=== PATIENT | female | born 1990 | race Caucasian/White ===

== ENCOUNTER 2016-08-26 00:24 | Observation (INO) | payer MEDICAID ==
[2016-08-26 01:11] LABS: Bacteria FEW /HPF (NEGATIVE); COMPLETE URINE MICROSCOPIC? YES; Collection Type CLEAN CATCH; Epithelial Cells FEW /HPF (FEW); WBC 0-2 /HPF (0-5)
[2016-08-26] MEDS ORDERED: Lactated Ringers 1,000 ML IV ONE ×2 (02:29→02:31)
[2016-08-26 04:54] VITALS: BP 108/65; PULSE 69
== END 2016-08-26 04:20 | disposition home or self-care (01) ==
LOC: OB 00:24
PROVIDERS: ADMIT Family Medicine; ATTEND Family Medicine
DX: Z34.82 Encounter for supervision of other normal pregnancy, second trimester (principal)
CPT/HCPCS: 80307; 81000; G0378

== ENCOUNTER 2016-12-22 14:58 | Inpatient (IN) | payer OTHER ==
[2016-12-22] MEDS ORDERED: Cervidil 10 MG VAG SCH (21:00)
[2016-12-22] MEDS ORDERED: PITOCIN 30 UNITS/ LR 500 ML 500 ML IV SCH (21:00)
[2016-12-22] MEDS ORDERED: BRETHINE 1 MG/ML SQ PRN (21:00)
[2016-12-22] MEDS ORDERED: XYLOCAINE 1% HCL 20 ML MDV IJ PRN (21:00)
[2016-12-22 22:08] LABS: BASOPHIL % 0.1 % (0.0-0.4); Eosinophil % 0.4 % (0.00-5.0); Granulocytes % 71.7 % (36.0-66.0); Lymphocytes % 17.9 % (24.0-44.0); Mean Cell Volume 89.4 fl (78-100); Mean Corpuscular Hemoglobin 30.5 pg (26-32); Mean Platelet Volume 10.3 fl (6-9.5); Monocytes % 9.9 % (0.0-12.0); Platelet Count 241 K/mm3 (150-450); Red Blood Count 3.67 M/mm3 (4.1-5.4); Red Cell Distribution Width 14.9 % (11.5-14.0); White Blood Count 11.6 K/mm3 (4.0-10.5)
[2016-12-23] MEDS ORDERED: PITOCIN 30 UNITS/ LR 500 ML 500 ML IV SCH (06:00)
[2016-12-23] MEDS ORDERED: Lactated Ringers 1,000 ML IV SCH (06:00)
[2016-12-23] MEDS ORDERED: STADOL 2 MG IV PRN (09:40)
[2016-12-23] MEDS ORDERED: Anucort-HC SUPPOSITORY PR PRN (12:02)
[2016-12-23] MEDS ORDERED: NORCO 5/325 MG PO PRN (12:02)
[2016-12-23] MEDS ORDERED: TYLENOL EXTRA STRENGTH 500 MG PO PRN (12:02)
[2016-12-23] MEDS ORDERED: Restoril 15 MG PO PRN (12:02)
[2016-12-23] MEDS ORDERED: TUCKS TP PRN (12:02)
[2016-12-23] MEDS ORDERED: CORTISONE 1% CREAM TP PRN (12:02)
[2016-12-23] MEDS ORDERED: Dulcolax 10 MG SUPP PR PRN (12:02)
[2016-12-23] MEDS ORDERED: LANSINOH 40 GM TOP PRN (12:02)
[2016-12-23] MEDS ORDERED: Mylicon 80MG PO PRN (12:02)
[2016-12-23] MEDS ORDERED: Ambien 10 MG PO PRN (12:02)
[2016-12-23] MEDS ORDERED: Adacel Vial IM ONE (15:00)
[2016-12-23] MEDS: Dermoplast Spray TP PRN (16:15)
[2016-12-23] MEDS: MOTRIN 400 MG PO PRN (19:38)
[2016-12-23] MEDS: Colace 100 MG PO SCH (22:21)
[2016-12-24] MEDS: MOTRIN 400 MG PO PRN ×2 (01:23→17:30)
[2016-12-24 06:00] LABS: BASOPHIL % 0.2 % (0.0-0.4); Eosinophil % 0.6 % (0.00-5.0); Granulocytes % 65.7 % (36.0-66.0); Lymphocytes % 23.2 % (24.0-44.0); Mean Cell Volume 91.8 fl (78-100); Mean Platelet Volume 10.2 fl (6-9.5); Monocytes % 10.3 % (0.0-12.0); Platelet Count 208 K/mm3 (150-450); Red Blood Count 3.29 M/mm3 (4.1-5.4); White Blood Count 12.5 K/mm3 (4.0-10.5)
[2016-12-24] MEDS: FERREX 150 PO SCH (10:03)
[2016-12-24] MEDS: Colace 100 MG PO SCH ×2 (10:03→22:30)
[2016-12-24] MEDS: Dermoplast Spray TP PRN (11:58)
[2016-12-25] MEDS: FERREX 150 PO SCH (11:09)
[2016-12-25] MEDS: Colace 100 MG PO SCH (11:09)
[2016-12-25 15:15] VITALS: BP 124/76; PULSE 77
== END 2016-12-25 15:10 | disposition home or self-care (01) | DRG 775 ==
LOC: OB 20:54 → OBSVTOIN 12-23 08:15 → MED SURG 12-24 14:25
PROVIDERS: ADMIT Family Medicine; ATTEND Family Medicine
PROC: 10E0XZZ Delivery of Products of Conception, External Approach (ICD-10-PCS; principal; 2016-12-23)
DX: O75.5 Delayed delivery after artificial rupture of membranes (principal); Z3A.39 39 weeks gestation of pregnancy; Z37.0 Single live birth
CPT/HCPCS: 36415; 80307; 85025; 90715; 94799; G0378; J0595; J2590; A9270-GY

== ENCOUNTER 2019-06-11 23:29 | Emergency (ER) | payer OTHER ==
--- NOTE | 2019-06-11 23:36 | ERPHSYRPT ---
- History of Present Illness Time Seen by Provider: 06/11/19 23:36 Source: patient, family Exam Limitations: no limitations Physician History: 28 y/o white female presents with fever since earlier today. pt is 8 to 10 weeks . pt denies cough, cp, abd pain. pt denies vaginal bleeding and denies rectal bleeding. Timing/Duration: today Severity: mild Associated Symptoms: fever Allergies/Adverse Reactions: No Known Drug Allergies Allergy (Verified 06/12/19 00:43) Home Medications: Pediatric Multivitamin No.101 [Gummy] 1 tab PO DAILY 08/26/16 [History] - Review of Systems Constitutional: Fever Eyes: No Symptoms Ears, Nose, & Throat: No Symptoms Respiratory: No Symptoms Cardiac: No Symptoms Abdominal/Gastrointestinal: No Symptoms Genitourinary Symptoms: Musculoskeletal: No Symptoms Skin: No Symptoms Neurological: No Symptoms Psychological: No Symptoms Endocrine: No Symptoms Hematologic/Lymphatic: No Symptoms Immunological/Allergic: No Symptoms All Other Systems: Reviewed and Negative - Past Medical History Pertinent Past Medical History: No Neurological History: No Pertinent History ENT History: No Pertinent History Cardiac History: No Pertinent History Respiratory History: No Pertinent History Endocrine Medical History: No Pertinent History Musculoskeletal History: No Pertinent History GI Medical History: No Pertinent History History: No Pertinent History Psycho-Social History: No Pertinent History Female Reproductive Disorders: No Pertinent History - Past Surgical History Past Surgical History: Yes Neuro Surgical History: No Pertinent History Cardiac: No Pertinent History Respiratory: No Pertinent History Gastrointestinal: No Pertinent History Genitourinary: No Pertinent History Musculoskeletal: No Pertinent History Female Surgical History: No Pertinent History - Social History Smoking Status: Never smoker Drug Use: none - Nursing Vital Signs Nursing Vital Signs: Initial Vital Signs Temperature 98.1 F 06/12/19 00:32 Pulse Rate 73 06/12/19 00:32 Respiratory Rate 18 06/12/19 00:32 Blood Pressure 129/78 06/12/19 00:32 O2 Sat by Pulse Oximetry 99 06/12/19 00:32 Pain Scale Pain Intensity 0 - Physical Exam General Appearance: no apparent distress, alert, anxiety Eye Exam: PERRL/EOMI, eyes nml inspection Ears, Nose, Throat Exam: normal ENT inspection, moist mucous membranes Neck Exam: normal inspection, non-tender, supple, full range of motion Respiratory Exam: normal breath sounds, lungs clear, airway intact, No chest tenderness, No respiratory distress Cardiovascular Exam: regular rate/rhythm, normal heart sounds, normal peripheral pulses Gastrointestinal/Abdomen Exam: soft, normal bowel sounds, No tenderness Pelvic Exam: not done Rectal Exam: not done Back Exam: normal inspection, normal range of motion, CVA tenderness, No vertebral tenderness Extremity Exam: normal inspection, normal range of motion, pelvis stable Neurologic Exam: alert, oriented x 3, cooperative, paratransit driver II-XII nml as tested Skin Exam: normal color, warm, dry Lymphatic Exam: No adenopathy SpO2 Interpretation: normal O2 Delivery: Room Air - Course Nursing assessment & vital signs reviewed: Yes Ordered Tests: Active Orders 24 hr Category Date Time Status UA W/RFX UR CULTURE Stat Lab 06/12/19 01:00 Completed Lab/Rad Data: Laboratory Results 06/12/19 06/12/19 Range/Units 01:05 01:00 Urine Color YELLOW (YELLOW) Urine Appearance CLOUDY (CLEAR) Urine pH 5.0 (5-6) Ur Specific [place] 1.030 (1.005-1.025) Urine Protein NEGATIVE (Negative) Urine Ketones NEGATIVE (NEGATIVE) Urine Blood NEGATIVE (0-5) Kings/ul Urine Nitrite NEGATIVE (NEGATIVE) Urine Bilirubin NEGATIVE (NEGATIVE) Urine Urobilinogen 2 (0-1) mg/dL Ur Leukocyte Esterase SMALL (NEGATIVE) Urine WBC (Auto) 3-5 (0-5) /HPF Urine RBC (Auto) 11-15 (0-2) /HPF U Hyaline Cast (Auto) 0-2 (0-2) /LPF U Epithel Cells (Auto) MANY (FEW) /HPF Urine Bacteria (Auto) FEW (NEGATIVE) /HPF Calcium Oxalate Crystal 26-50 (NEGATIVE) /HPF Urine Mucus (Auto) MANY (NEGATIVE) /HPF Urine Culture Reflexed NO (NO) Urine Glucose NEGATIVE (NEGATIVE) mg/dL Influenza Type A Ag NEGATIVE (NEGATIVE) Influenza Type B Ag NEGATIVE (NEGATIVE) RSV (PCR) POSITIVE (Negative) Group A Strep Antibody NEGATIVE (NEGATIVE) - Progress Progress: unchanged Counseled pt/family regarding: lab results, diagnosis, need for follow-up - Departure Departure Disposition: Home Clinical Impression: RSV (acute bronchiolitis due to respiratory syncytial virus), UTI (urinary tract infection) Condition: Stable Critical Care Time: No Referrals: DYLON CARVAJAL MD [Primary Care Provider] - Additional Instructions: drink plenty of fluids. tylenol for pain and fever. follow up with primary doctor for further management
[2019-06-12 01:47] LABS: INFLUENZA A NEGATIVE (NEGATIVE); INFLUENZA B NEGATIVE (NEGATIVE)
[2019-06-12 01:48] LABS: RESPIRATORY SYNCTIAL VIRUS POSITIVE (Negative)
[2019-06-12 01:56] LABS: Appearance CLOUDY (CLEAR); Bacteria FEW /HPF (NEGATIVE); Bilirubin NEGATIVE (NEGATIVE); Blood NEGATIVE Ery/ul (0-5); Calcium Oxalate Crystals 26-50 /HPF (NEGATIVE); Epithelial Cells MANY /HPF (FEW); Glucose NEGATIVE (NEGATIVE); Hyaline Casts 0-2 /LPF (0-2); Ketones NEGATIVE (NEGATIVE); Leukocyte Esterase SMALL (NEGATIVE); Mucus MANY /HPF (NEGATIVE); Nitrite NEGATIVE (NEGATIVE); Protein,Urine Dip NEGATIVE (Negative); Urobilinogen 2 mg/dL (0-1)
[2019-06-12 02:10] VITALS: BP 112/67
[2019-06-12] MEDS ORDERED: KEFLEX 500 MG PO ONE (02:30)
[2019-06-12] MEDS ORDERED: KEFLEX 500 MG ONE (02:34)
[2019-06-12 02:41] VITALS: PULSE 64; O2SAT 100
== END 2019-06-12 02:41 | disposition home or self-care (01) ==
LOC: ED 23:29
DX: J21.0 Acute bronchiolitis due to respiratory syncytial virus (principal); N39.0 Urinary tract infection, site not specified
CPT/HCPCS: 81001; 87631; 87651; 99283; A9270-GY

== ENCOUNTER 2019-07-31 20:46 | Emergency (ER) | payer OTHER ==
[2019-07-31 21:08] VITALS: O2SAT 100
--- NOTE | 2019-07-31 21:17 | ERPHSYRPT ---
- History of Present Illness Time Seen by Provider: 07/31/19 20:55 Historian: patient Exam Limitations: no limitations Patient Subjective Stated Complaint: pt states she has been lifting heavy things at work and had sudden onset lower abd/pelvic pain. denies any vaginal bleeding. Triage Nursing Assessment: pt alert and oriented, answers questions approp. pt ambulatory with steady gait noted. respirations nonlabored with lungs cta. skin pink warm and dry. abd soft and nontender to light palpation. bowel sounds present x4. 3 para 2 Physician History: Patient is a 28-year-old female who is currently 14 weeks G3, P2 presents to our ED with complaints of pelvic cramping. Patient works on [employer]. Patient states she has been overworking herself recently. Patient states her work does not allow her frequent breaks. Patient was at work today when she developed sudden onset lower abdominal pelvic cramps. Patient was lifting an object at the time of the onset. Pain described as a sharp sensation that is intermittent. No specific worsening improving factors. No vaginal discharge. No vaginal bleeding. Patient declined a pelvic exam. Patient states she is scheduled to have a pelvic exam with her primary care doctor, Dr. العراقي. Pelvic exam scheduled to be done on August 14. No associated trauma. No fever. No diarrhea. No nausea or vomiting. No chest pain or shortness of breath. Patient is otherwise healthy. She voices no other complaints at this time. Timing/Duration: today Activities at Onset: activity Quality: cramping, sharpness Abdominal Pain Onset Location: other (pelvic) Pain Radiation: no radiation Severity of Pain-Max: moderate Severity of Pain-Current: moderate (Patient declined pain medication. She appears comfortable.) Modifying Factors: Improves With: nothing Associated Symptoms: No chest pain, No diaphoresis, No diarrhea, No fever/chills , No headache, No heartburn, No loss of appetite, No nausea, No neck pain, No shortness of breath, No syncope Previous symptoms: no prior history Allergies/Adverse Reactions: No Known Drug Allergies Allergy (Verified 06/12/19 00:43) Home Medications: Pediatric Multivitamin No.101 [Gummy] 1 tab PO DAILY 08/26/16 [History] Hx Tetanus, Diphtheria Vaccination/Date Given: Yes Hx Influenza Vaccination/Date Given: No Hx Pneumococcal Vaccination/Date Given: No Immunizations Up to Date: Yes - Review of Systems Constitutional: No Fever, No Chills Eyes: No Symptoms Ears, Nose, & Throat: No Symptoms Respiratory: No Symptoms, No Cough, No Dyspnea Cardiac: No Symptoms, No Chest Pain, No Edema, No Syncope Abdominal/Gastrointestinal: No Abdominal Pain (No abdominal pain. Pelvic pain. Intermittent sharp localized pelvic cramps.), No Nausea, No Vomiting, No Diarrhea Genitourinary Symptoms: No Dysuria Musculoskeletal: No Symptoms, No Back Pain, No Neck Pain Skin: No Rash Neurological: No Symptoms, No Dizziness, No Focal Weakness, No Sensory Changes Psychological: No Symptoms Endocrine: No Symptoms All Other Systems: Reviewed and Negative - Past Medical History Pertinent Past Medical History: No Neurological History: No Pertinent History ENT History: No Pertinent History Cardiac History: No Pertinent History Respiratory History: No Pertinent History Endocrine Medical History: No Pertinent History Musculoskeletal History: No Pertinent History GI Medical History: No Pertinent History History: No Pertinent History Psycho-Social History: No Pertinent History Female Reproductive Disorders: No Pertinent History - Past Surgical History Past Surgical History: Yes Neuro Surgical History: No Pertinent History Cardiac: No Pertinent History Respiratory: No Pertinent History Gastrointestinal: No Pertinent History Genitourinary: No Pertinent History Musculoskeletal: No Pertinent History Female Surgical History: No Pertinent History - Social History Smoking Status: Never smoker Exposure to second hand smoke: Yes Drug Use: none Patient Lives Alone: No - Female History Hx Now: Yes Expected Date of Delivery: 01/24/20 Gestational Age: 14 weeks - Nursing Vital Signs Nursing Vital Signs: Initial Vital Signs Temperature 97.4 F 07/31/19 20:51 Pulse Rate 64 07/31/19 20:51 Respiratory Rate 18 07/31/19 20:51 Blood Pressure 127/89 07/31/19 20:51 O2 Sat by Pulse Oximetry 100 07/31/19 20:51 Pain Scale Pain Intensity 9 - Physical Exam General Appearance: no apparent distress, alert Eye Exam: PERRL/EOMI, eyes nml inspection Ears, Nose, Throat Exam: normal ENT inspection, pharynx normal, moist mucous membranes Neck Exam: normal inspection, non-tender, supple, full range of motion Respiratory Exam: normal breath sounds, lungs clear, No respiratory distress Cardiovascular Exam: regular rate/rhythm, normal heart sounds Gastrointestinal/Abdomen Exam: soft, tenderness (Suprapubic tenderness to palpation. No guarding. No rebound. No obvious hernias.), No normal bowel sounds, No mass, No guarding, No hernia, No organomegaly, No splenomegaly Pelvic Exam: not done (Patient declined a pelvic exam. Patient states she will have a pelvic exam performed by her primary care doctor on August 14.) Back Exam: normal inspection, normal range of motion, No CVA tenderness, No vertebral tenderness Extremity Exam: normal inspection, normal range of motion, pelvis stable Neurologic Exam: alert, oriented x 3, cooperative, normal mood/affect, nml cerebellar function, sensation nml, No motor deficits Skin Exam: normal color, warm, dry SpO2 Interpretation: normal SpO2: 100 O2 Delivery: Room Air - Course Nursing assessment & vital signs reviewed: Yes - Radiology Ultrasound Exam Pelvis Ultrasound: tele radiology report (No abnormality seen) Ordered Tests: Active Orders 24 hr Category Date Time Status IV Insertion STAT Care 07/31/19 21:04 Active OB LIMITED [US] Stat Exams 07/31/19 21:06 Taken CBC W DIFF Stat Lab 07/31/19 21:30 Completed CMP Stat Lab 07/31/19 21:30 Completed HCG, Quantitative (Inhouse) Stat Lab 07/31/19 21:30 Completed UA W/RFX UR CULTURE Stat Lab 07/31/19 21:05 Completed Lab/Rad Data: Laboratory Result Diagrams 07/31/19 21:30 07/31/19 21:30 Laboratory Results 07/31/19 07/31/19 07/31/19 Range/Units 21:30 21:30 21:30 WBC 8.3 (4.0-10.5) K/mm3 RBC 3.60 L (4.1-5.4) M/mm3 Hgb 10.7 L (12.0-16.0) gm/dl Hct 31.8 L (35-47) % MCV 88.3 (78-100) fl MCH 29.7 (26-32) pg MCHC 33.6 (32-36) g/dl RDW 14.5 H (11.5-14.0) % Plt Count 210 (150-450) K/mm3 MPV 9.6 (7.5-11.0) fl Gran % 67.8 H (36.0-66.0) % Eos # (Auto) 0.12 (0-0.5) Absolute Lymphs (auto) 1.90 (1.0-4.6) Absolute Monos (auto) 0.62 (0.0-1.3) Lymphocytes % 22.9 L (24.0-44.0) % Monocytes % 7.5 (0.0-12.0) % Eosinophils % 1.4 (0.00-5.0) % Basophils % 0.4 (0.0-0.4) % Absolute Granulocytes 5.62 (1.4-6.9) Basophils # 0.03 (0-0.4) Sodium 136 L (137-145) mmol/L Potassium 3.6 (3.5-5.1) mmol/L Chloride 110 H (98-107) mmol/L Carbon Dioxide 21 L (22-30) mmol/L Anion Gap 9.2 (5-15) MEQ/L BUN 8 (7-17) mg/dL Creatinine 0.45 L (0.52-1.04) mg/dL Estimated GFR > 60.0 ML/MIN Glucose 87 (74-106) mg/dL Calcium 8.8 (8.4-10.2) mg/dL Total Bilirubin 0.50 (0.2-1.3) mg/dL AST 14 (14-36) U/L ALT 5 (0-35) U/L Alkaline Phosphatase 40 (38-126) U/L Serum Total Protein 6.7 (6.3-8.2) g/dL Albumin 3.5 (3.5-5.0) g/dL Beta HCG, Quant 76506 mIU/ml Urine Color (YELLOW) Urine Appearance (CLEAR) Urine pH (5-6) Ur Specific [place] (1.005-1.025) Urine Protein (Negative) Urine Ketones (NEGATIVE) Urine Blood (0-5) Kings/ul Urine Nitrite (NEGATIVE) Urine Bilirubin (NEGATIVE) Urine Urobilinogen (0-1) mg/dL Ur Leukocyte Esterase (NEGATIVE) Urine WBC (Auto) (0-5) /HPF Urine RBC (Auto) (0-2) /HPF U Epithel Cells (Auto) (FEW) /HPF Urine Bacteria (Auto) (NEGATIVE) /HPF Urine Mucus (Auto) (NEGATIVE) /HPF Urine Culture Reflexed (NO) Urine Glucose (NEGATIVE) mg/dL 07/31/ Range/Units 21:05 WBC (4.0-10.5) K/mm3 RBC (4.1-5.4) M/mm3 Hgb (12.0-16.0) gm/dl Hct (35-47) % MCV (78-100) fl MCH (26-32) pg MCHC (32-36) g/dl RDW (11.5-14.0) % Plt Count (150-450) K/mm3 MPV (7.5-11.0) fl Gran % (36.0-66.0) % Eos # (Auto) (0-0.5) Absolute Lymphs (auto) (1.0-4.6) Absolute Monos (auto) (0.0-1.3) Lymphocytes % (24.0-44.0) % Monocytes % (0.0-12.0) % Eosinophils % (0.00-5.0) % Basophils % (0.0-0.4) % Absolute Granulocytes (1.4-6.9) Basophils # (0-0.4) Sodium (137-145) mmol/L Potassium (3.5-5.1) mmol/L Chloride (98-107) mmol/L Carbon Dioxide (22-30) mmol/L Anion Gap (5-15) MEQ/L BUN (7-17) mg/dL Creatinine (0.52-1.04) mg/dL Estimated GFR ML/MIN Glucose (74-106) mg/dL Calcium (8.4-10.2) mg/dL Total Bilirubin (0.2-1.3) mg/dL AST (14-36) U/L ALT (0-35) U/L Alkaline Phosphatase (38-126) U/L Serum Total Protein (6.3-8.2) g/dL Albumin (3.5-5.0) g/dL Beta HCG, Quant mIU/ml Urine Color YELLOW (YELLOW) Urine Appearance SLIGHTLY CLOUDY (CLEAR) Urine pH 5.0 (5-6) Ur Specific [place] 1.025 (1.005-1.025) Urine Protein NEGATIVE (Negative) Urine Ketones SMALL (NEGATIVE) Urine Blood NEGATIVE (0-5) Kings/ul Urine Nitrite NEGATIVE (NEGATIVE) Urine Bilirubin NEGATIVE (NEGATIVE) Urine Urobilinogen NEGATIVE (0-1) mg/dL Ur Leukocyte Esterase TRACE (NEGATIVE) Urine WBC (Auto) 0-2 (0-5) /HPF Urine RBC (Auto) 0-2 (0-2) /HPF U Epithel Cells (Auto) RARE (FEW) /HPF Urine Bacteria (Auto) NONE (NEGATIVE) /HPF Urine Mucus (Auto) SLIGHT (NEGATIVE) /HPF Urine Culture Reflexed NO (NO) Urine Glucose NEGATIVE (NEGATIVE) mg/dL - Progress Progress: improved Progress Note: 07/31/19 22:54 Patient reassessed. Pain resolved. Work-up essentially negative at this time. Patient is attributing her symptoms to repetitive motion and overwork. We will give patient 3 days off, she may return to work on Tuesday as long as her symptoms have resolved. Work note provided. Patient requesting discharge. Results plan of care discussed with patient. She agrees to follow-up with her [employer]/primary care doctor within 48 hours for reevaluation. - Departure Departure Disposition: Home Clinical Impression: , Pelvic pain, Anemia Condition: Good Critical Care Time: No Referrals: DYLON العراقي MD [Primary Care Provider] - Additional Instructions: Discharge/Care Plan SAMIAHILDA TORRES was seen on 07/31/19 in the Emergency Room. The patient was counseled regarding Diagnosis,Lab results, Imaging studies, need for follow up and when to return to the Emergency Room. Prescriptions given: Discharge Note I have spoken with the patient and/or caregivers. I have explained the patient' s condition, diagnosis and treatment plan based on the information available to me at this time. I have answered the patient's and/or caregiver's questions and addressed any concerns. The patient and/or caregivers have as good understanding of the patient's diagnosis, condition and treatment plan as can be expected at this point. The vital signs have been stable. The patient's condition is stable and appropriate for discharge from the emergency department. The patient will pursue further outpatient evaluation with the primary care physician or other designated or consulting physician as outlined in the discharge instructions. The patient and/or caregivers are agreeable to this plan of care and follow-up instructions have been explained in detail. The patient and/or caregivers have received these instruction. The patient/and or caregivers are aware that any significant change in condition or worsening of symptoms should prompt an immediate return to this or the closest emergency department or call 911. Forms: Work/School Release Form
[2019-07-31 21:32] LABS: Appearance SLIGHTLY CLOUDY (CLEAR); Bilirubin NEGATIVE (NEGATIVE); Blood NEGATIVE Ery/ul (0-5); Epithelial Cells RARE /HPF (FEW); Glucose NEGATIVE (NEGATIVE); Ketones SMALL (NEGATIVE); Leukocyte Esterase TRACE (NEGATIVE); Mucus SLIGHT /HPF (NEGATIVE); Nitrite NEGATIVE (NEGATIVE); Protein,Urine Dip NEGATIVE (Negative); RBC 0-2 /HPF (0-2); Specific Gravity 1.025 (1.005-1.025); Urobilinogen NEGATIVE mg/dL (0-1); WBC 0-2 /HPF (0-5)
[2019-07-31 21:37] LABS: Absolute Neutrophil Ct (ANC) 5.62 (1.4-6.9); BASOPHIL % 0.4 % (0.0-0.4); Basophil (Absolute #) 0.03 (0-0.4); Eosinophil % 1.4 % (0.00-5.0); Eosinophil (Absolute #) 0.12 (0-0.5); Hematocrit 31.8 % (35-47); Hemoglobin 10.7 gm/dl (12.0-16.0); Lymphocytes % 22.9 % (24.0-44.0); Mean Cell Volume 88.3 fl (78-100); Mean Corpuscular Hemoglobin 29.7 pg (26-32); Mean Corpuscular Hgb Concent. 33.6 g/dl (32-36); Mean Platelet Volume 9.6 fl (7.5-11.0); Monocyte (Absolute #) 0.62 (0.0-1.3); Monocytes % 7.5 % (0.0-12.0); Neutrophil % 67.8 % (36.0-66.0); Platelet Count 210 K/mm3 (150-450); Red Cell Distribution Width 14.5 % (11.5-14.0); White Blood Count 8.3 K/mm3 (4.0-10.5)
[2019-07-31 21:46] LABS: ALBUMIN 3.5 g/dL (3.5-5.0); ALKALINE PHOSPHATASE 40 U/L (38-126); ANION GAP 9.2 MEQ/L (5-15); BLOOD UREA NITROGEN 8 mg/dL (7-17); CHLORIDE 110 mmol/L (98-107); Calcium 8.8 mg/dL (8.4-10.2); Carbon Dioxide 21 mmol/L (22-30); Creatinine 1 0.45 mg/dL (0.52-1.04); Glucose 87 mg/dL (74-106); Potassium 3.6 mmol/L (3.5-5.1); SGOT/AST 14 U/L (14-36); SODIUM 136 mmol/L (137-145); Total Protein 6.7 g/dL (6.3-8.2)
[2019-07-31 21:48] LABS: SGPT/ALT 5 U/L (0-35)
[2019-07-31 23:06] VITALS: BP 102/71; PULSE 63
--- NOTE | 2019-08-01 08:44 | XRAY ---
Indication: viability. Limited OB ultrasound performed. Comparison: June 14, 2019. Again there is a single viable intrauterine with mean gestational age 14 weeks 6 days. heart rate 150 BPM. Developing anterior placenta without abruption/previa. Impression: Again single viable intrauterine with mean gestational age 14 weeks 6 days. Normal progression of . No new/acute findings. Comment: Preliminary report was given.
== END 2019-07-31 23:03 | disposition home or self-care (01) ==
LOC: ED 20:46
DX: R10.2 Pelvic and perineal pain (principal); X50.0XXA Overexertion from strenuous movement or load, initial encounter; X50.9XXA Other and unspecified overexertion or strenuous movements or postures, initial encounter; Y93.89 Activity, other specified; Y92.89 Other specified places as the place of occurrence of the external cause; Y99.0 Civilian activity done for income or pay; Z33.1 Pregnant state, incidental
CPT/HCPCS: 36415; 76815; 80053; 81001; 84702; 85025; 99283

== ENCOUNTER 2019-08-13 00:14 | Emergency (ER) | payer OTHER ==
--- NOTE | 2019-08-13 00:59 | ERPHSYRPT ---
- History of Present Illness Time Seen by Provider: 08/13/19 00:35 Source: patient, family Patient Subjective Stated Complaint: pt states that she got up to urinate and seen spots of blood, pt states that she is 16 weeks, pt states that this is her 3 , pt states that this has never happened with the other 2 Triage Nursing Assessment: pt ambulated into the er, pt is axo x3, tearful, vitals wnl, denies any cramping or pain, pt states spotting, abdomen soft, active bowel sounds Physician History: 1-year-old white female who presents with vaginal spotting. Patient is approximately 17 weeks . On July 31, 2019 the fetus measured 14 weeks 6 days on ultrasound. Patient did have sexual intercourse a couple hours ago prior to the spotting. Patient is scheduled to have a obstetric vaginal exam on August 15, 2019 and patient declines 1 today. Patient denies nausea vomiting or diarrhea. Patient has very mild lower abdominal/suprapubic pressure. Timing/Duration: today Activites at Onset: sexual activity Quality: pressure (Mild suprapubic) Onset Location: suprapubic Severity of Pain-Max: mild Severity of Pain-Current: none Prior abdominal problems: none Modifying Factors: Improves With: nothing Associated Symptoms: vaginal discharge (Spotting of blood) Allergies/Adverse Reactions: No Known Drug Allergies Allergy (Verified 08/13/19 00:35) Home Medications: Pediatric Multivitamin No.101 [Gummy] 1 tab PO DAILY 08/26/16 [History] Ferrous Sulfate [Iron] 1 tab PO DAILY 08/13/19 [History] Hx Tetanus, Diphtheria Vaccination/Date Given: Yes Hx Influenza Vaccination/Date Given: No Hx Pneumococcal Vaccination/Date Given: No - Review of Systems Constitutional: No Symptoms Eyes: No Symptoms Ears, Nose, & Throat: No Symptoms Respiratory: No Symptoms Cardiac: No Symptoms Abdominal/Gastrointestinal: Abdominal Pain (Suprapubic pressure, mild) Genitourinary Symptoms: Other (Vaginal spotting) Musculoskeletal: No Symptoms Skin: No Symptoms Neurological: No Symptoms Psychological: No Symptoms Endocrine: No Symptoms Hematologic/Lymphatic: No Symptoms Immunological/Allergic: No Symptoms All Other Systems: Reviewed and Negative - Past Medical History Pertinent Past Medical History: No Neurological History: No Pertinent History ENT History: No Pertinent History Cardiac History: No Pertinent History Respiratory History: No Pertinent History Endocrine Medical History: No Pertinent History Musculoskeletal History: No Pertinent History GI Medical History: No Pertinent History History: No Pertinent History Psycho-Social History: No Pertinent History Female Reproductive Disorders: No Pertinent History - Past Surgical History Past Surgical History: Yes Neuro Surgical History: No Pertinent History Cardiac: No Pertinent History Respiratory: No Pertinent History Gastrointestinal: No Pertinent History Genitourinary: No Pertinent History Musculoskeletal: No Pertinent History Female Surgical History: No Pertinent History - Social History Smoking Status: Never smoker Exposure to second hand smoke: Yes Drug Use: none Patient Lives Alone: No - Female History Hx Now: Yes - Nursing Vital Signs Nursing Vital Signs: Initial Vital Signs Temperature 97.9 F 08/13/19 00:22 Pulse Rate 81 08/13/19 00:22 Respiratory Rate 18 08/13/19 00:22 Blood Pressure 117/81 08/13/19 00:22 O2 Sat by Pulse Oximetry 99 08/13/19 00:22 Pain Scale Pain Intensity 0 - Physical Exam General Appearance: no apparent distress, alert, anxiety Eye Exam: PERRL/EOMI, eyes nml inspection Ears, Nose, Throat Exam: normal ENT inspection, moist mucous membranes Neck Exam: normal inspection, non-tender, supple, full range of motion Respiratory Exam: normal breath sounds, lungs clear, airway intact, No chest tenderness, No respiratory distress Cardiovascular Exam: regular rate/rhythm, normal heart sounds, normal peripheral pulses Gastrointestinal/Abdomen Exam: soft, normal bowel sounds, No tenderness Pelvic Exam: not done (Patient declines at this time) Rectal Exam: not done Back Exam: normal inspection, normal range of motion, No CVA tenderness, No vertebral tenderness Extremity Exam: normal inspection, normal range of motion, pelvis stable Neurologic Exam: alert, oriented x 3, cooperative, performance improvement coordinator II-XII nml as tested, nml cerebellar function, nml station & gait Skin Exam: normal color, warm, dry Lymphatic Exam: No adenopathy SpO2 Interpretation: normal SpO2: 99 O2 Delivery: Room Air Ordered Tests: Active Orders 24 hr Category Date Time Status BMP Stat Lab 08/13/19 01:15 Completed CBC W DIFF Stat Lab 08/13/19 01:15 Completed UA W/RFX UR CULTURE Stat Lab 08/13/19 01:28 Completed Lab/Rad Data: Laboratory Result Diagrams 08/13/19 01:15 08/13/19 01:15 Laboratory Results 0308/13/19 08/13/19 Range/Units 01:28 01:15 01:15 WBC 9.9 (4.0-10.5) K/mm3 RBC 3.55 L (4.1-5.4) M/mm3 Hgb 10.6 L (12.0-16.0) gm/dl Hct 31.5 L (35-47) % MCV 88.7 (78-100) fl MCH 29.9 (26-32) pg MCHC 33.7 (32-36) g/dl RDW 14.9 H (11.5-14.0) % Plt Count 214 (150-450) K/mm3 MPV 9.3 (7.5-11.0) fl Gran % 72.0 H (36.0-66.0) % Eos # (Auto) 0.10 (0-0.5) Absolute Lymphs (auto) 1.87 (1.0-4.6) Absolute Monos (auto) 0.77 (0.0-1.3) Lymphocytes % 19.0 L (24.0-44.0) % Monocytes % 7.8 (0.0-12.0) % Eosinophils % 1.0 (0.00-5.0) % Basophils % 0.2 (0.0-0.4) % Absolute Granulocytes 7.09 H (1.4-6.9) Basophils # 0.02 (0-0.4) Sodium 136 L (137-145) mmol/L Potassium 3.5 (3.5-5.1) mmol/L Chloride 109 H (98-107) mmol/L Carbon Dioxide 23 (22-30) mmol/L Anion Gap 8.7 (5-15) MEQ/L BUN 12 (7-17) mg/dL Creatinine 0.53 (0.52-1.04) mg/dL Estimated GFR > 60.0 ML/MIN Glucose 84 (74-106) mg/dL Calcium 8.9 (8.4-10.2) mg/dL Urine Color STRAW (YELLOW) Urine Appearance CLEAR (CLEAR) Urine pH 6.0 (5-6) Ur Specific [place] 1.010 (1.005-1.025) Urine Protein NEGATIVE (Negative) Urine Ketones NEGATIVE (NEGATIVE) Urine Blood NEGATIVE (0-5) Kings/ul Urine Nitrite NEGATIVE (NEGATIVE) Urine Bilirubin NEGATIVE (NEGATIVE) Urine Urobilinogen NEGATIVE (0-1) mg/dL Ur Leukocyte Esterase NEGATIVE (NEGATIVE) Urine WBC (Auto) NONE (0-5) /HPF Urine RBC (Auto) NONE SEEN (0-2) /HPF U Epithel Cells (Auto) NONE (FEW) /HPF Urine Bacteria (Auto) NONE SEEN (NEGATIVE) /HPF Urine Mucus (Auto) SLIGHT (NEGATIVE) /HPF Urine Culture Reflexed NO (NO) Urine Glucose NEGATIVE (NEGATIVE) mg/dL - Progress Progress: unchanged Air Movement: good Blood Culture(s) Obtained: No Antibiotics given: No Counseled pt/family regarding: lab results, diagnosis, need for follow-up - Departure Departure Disposition: Home Clinical Impression: Vaginal bleeding during Condition: Stable Critical Care Time: No Referrals: DYLON CARVAJAL MD [Primary Care Provider] - Additional Instructions: Follow-up later this morning with the radiology department to obtain a vaginal ultrasound. Contact Dr. carvajal, after you undergo the vaginal ultrasound to obtain your ultrasound results. Keep your appointment on August 15, 2019 in her office.
[2019-08-13 01:18] LABS: Absolute Neutrophil Ct (ANC) 7.09 (1.4-6.9); BASOPHIL % 0.2 % (0.0-0.4); Basophil (Absolute #) 0.02 (0-0.4); Hematocrit 31.5 % (35-47); Hemoglobin 10.6 gm/dl (12.0-16.0); Lymphocyte (Absolute #) 1.87 (1.0-4.6); Mean Cell Volume 88.7 fl (78-100); Mean Corpuscular Hemoglobin 29.9 pg (26-32); Mean Corpuscular Hgb Concent. 33.7 g/dl (32-36); Mean Platelet Volume 9.3 fl (7.5-11.0); Monocyte (Absolute #) 0.77 (0.0-1.3); Monocytes % 7.8 % (0.0-12.0); Platelet Count 214 K/mm3 (150-450); Red Blood Count 3.55 M/mm3 (4.1-5.4); Red Cell Distribution Width 14.9 % (11.5-14.0); White Blood Count 9.9 K/mm3 (4.0-10.5)
[2019-08-13 01:29] LABS: ANION GAP 8.7 MEQ/L (5-15); BLOOD UREA NITROGEN 12 mg/dL (7-17); CHLORIDE 109 mmol/L (98-107); Calcium 8.9 mg/dL (8.4-10.2); Carbon Dioxide 23 mmol/L (22-30); Creatinine 1 0.53 mg/dL (0.52-1.04); Glucose 84 mg/dL (74-106); Potassium 3.5 mmol/L (3.5-5.1); SODIUM 136 mmol/L (137-145)
[2019-08-13 01:34] LABS: Appearance CLEAR (CLEAR); Bilirubin NEGATIVE (NEGATIVE); Blood NEGATIVE Ery/ul (0-5); Glucose NEGATIVE (NEGATIVE); Ketones NEGATIVE (NEGATIVE); Leukocyte Esterase NEGATIVE (NEGATIVE); Mucus SLIGHT /HPF (NEGATIVE); Nitrite NEGATIVE (NEGATIVE); Protein,Urine Dip NEGATIVE (Negative); Urobilinogen NEGATIVE mg/dL (0-1)
[2019-08-13 01:36] LABS: Bacteria NONE SEEN /HPF (NEGATIVE); RBC NONE SEEN /HPF (0-2)
[2019-08-13 02:04] VITALS: BP 110/75; PULSE 66; O2SAT 98
== END 2019-08-13 02:05 | disposition home or self-care (01) ==
LOC: ED 00:14
DX: O46.92 Antepartum hemorrhage, unspecified, second trimester (principal)
CPT/HCPCS: 36415; 80048; 81001; 85025; 99284

== ENCOUNTER 2019-09-04 17:21 | Emergency (ER) | payer OTHER ==
[2019-09-04 17:55] VITALS: O2SAT 97
[2019-09-04] MEDS ORDERED: Sodium Chloride 0.9% 1000 ML 1,000 ML IV STA (17:59)
[2019-09-04] MEDS ORDERED: Sodium Chloride 0.9% 1000 ML 1,000 ML ONE (18:02)
[2019-09-04 18:04] LABS: Absolute Neutrophil Ct (ANC) 6.53 (1.4-6.9); BASOPHIL % 0.2 % (0.0-0.4); Basophil (Absolute #) 0.02 (0-0.4); Eosinophil % 2.6 % (0.00-5.0); Eosinophil (Absolute #) 0.23 (0-0.5); Hematocrit 33.8 % (35-47); Hemoglobin 11.6 gm/dl (12.0-16.0); Lymphocyte (Absolute #) 1.23 (1.0-4.6); Lymphocytes % 13.9 % (24.0-44.0); Mean Cell Volume 89.9 fl (78-100); Mean Corpuscular Hemoglobin 30.9 pg (26-32); Mean Corpuscular Hgb Concent. 34.3 g/dl (32-36); Mean Platelet Volume 9.9 fl (7.5-11.0); Monocyte (Absolute #) 0.83 (0.0-1.3); Monocytes % 9.4 % (0.0-12.0); Neutrophil % 73.9 % (36.0-66.0); Platelet Count 222 K/mm3 (150-450); Red Blood Count 3.76 M/mm3 (4.1-5.4); Red Cell Distribution Width 15.6 % (11.5-14.0); White Blood Count 8.8 K/mm3 (4.0-10.5)
[2019-09-04 18:04] LABS: Appearance SLIGHTLY CLOUDY (CLEAR); Bacteria RARE /HPF (NEGATIVE); Bilirubin NEGATIVE (NEGATIVE); Blood NEGATIVE Ery/ul (0-5); Epithelial Cells RARE /HPF (FEW); Glucose NEGATIVE (NEGATIVE); Ketones NEGATIVE (NEGATIVE); Leukocyte Esterase NEGATIVE (NEGATIVE); Mucus SLIGHT /HPF (NEGATIVE); Nitrite NEGATIVE (NEGATIVE); Protein,Urine Dip NEGATIVE (Negative); Specific Gravity 1.025 (1.005-1.025); Urobilinogen 2 mg/dL (0-1); WBC 0-2 /HPF (0-5)
--- NOTE | 2019-09-04 18:08 | ERPHSYRPT ---
- History of Present Illness Time Seen by Provider: 09/04/19 17:23 Source: patient Exam Limitations: no limitations Patient Subjective Stated Complaint: SOB, cough, muscle aches Triage Nursing Assessment: pt to ED c/o cough x 2 weeks and new onset diarrhea, muscles aches, SOB starting yesterday. pt denies pain at this time. pt is 4 months , has obgyn. no complications reported r/t at this time. pt reports non-productive cough. [place] with confirmed [place] cases, however is not aware of any direct exposure at this time. A&Ox3, lung sounds clear and equal bilaterally, heart sounds clear, cap refil <3 sec, ski is pink, warm and dry, pt ambulates per self on arrival to ED. Physician History: 28-year-old female with 2-week duration of chest cough but has now progressed to body aches, diarrhea and shortness of breath since yesterday denies fever. No nausea or vomiting. Patient is 24 weeks and has had no complications from that. Concern for Covid 19. Sent here from her work. Timing/Duration: week(s) (2), gradual onset Cough Quality/Degree: dry cough Possible Cause: no prior episodes Modifying Factors: Improves With: coughing Associated Symptoms: cough, muscle aches, shortness of breath, sore throat International travel in last 2 weeks: No Allergies/Adverse Reactions: No Known Drug Allergies Allergy (Verified 09/04/19 17:55) Home Medications: Pediatric Multivitamin No.101 [Gummy] 1 tab PO DAILY 08/26/16 [History] Ferrous Sulfate [Iron] 1 tab PO DAILY 08/13/19 [History] Hx Tetanus, Diphtheria Vaccination/Date Given: Yes Hx Influenza Vaccination/Date Given: No Hx Pneumococcal Vaccination/Date Given: No Travel Risk - International Travel Have you traveled outside of the country in past 3 weeks: No Have you or anyone close to you been diagnosed with or: No Do your reside in a community with a known COVID-19 case?: Yes If Yes where:: [facility] - Coronavirus Screening Has patient experienced Coronavirus symptoms: Yes Symptoms experienced: respiratory symptoms (i.e.Cought,shortness of breath), muscle pain, weakness Date of respiratory symptoms onset:: 08/21/19 - Review of Systems Constitutional: No Fever, No Chills Eyes: No Symptoms Ears, Nose, & Throat: No Symptoms Respiratory: Cough, Dyspnea Cardiac: No Chest Pain, No Edema, No Syncope Abdominal/Gastrointestinal: Diarrhea, No Abdominal Pain, No Nausea, No Vomiting Genitourinary Symptoms: No Dysuria Musculoskeletal: Myalgias, No Back Pain, No Neck Pain Skin: No Rash Neurological: No Dizziness, No Focal Weakness, No Sensory Changes Psychological: No Symptoms Endocrine: No Symptoms All Other Systems: Reviewed and Negative - Past Medical History Pertinent Past Medical History: No Neurological History: No Pertinent History ENT History: No Pertinent History Cardiac History: No Pertinent History Respiratory History: No Pertinent History Endocrine Medical History: No Pertinent History Musculoskeletal History: No Pertinent History GI Medical History: No Pertinent History History: No Pertinent History Psycho-Social History: No Pertinent History Female Reproductive Disorders: No Pertinent History - Past Surgical History Past Surgical History: Yes Neuro Surgical History: No Pertinent History Cardiac: No Pertinent History Respiratory: No Pertinent History Gastrointestinal: No Pertinent History Genitourinary: No Pertinent History Musculoskeletal: No Pertinent History Female Surgical History: No Pertinent History - Social History Smoking Status: Never smoker Exposure to second hand smoke: Yes Drug Use: none Patient Lives Alone: No - Female History Hx Last Menstrual Period: 4 months ago Hx Now: Yes Gestational Age: 4 months - Nursing Vital Signs Nursing Vital Signs: Initial Vital Signs Temperature 98.3 F 09/04/19 17:46 Pulse Rate 81 09/04/19 17:46 Respiratory Rate 18 09/04/19 17:46 Blood Pressure 123/78 09/04/19 17:46 O2 Sat by Pulse Oximetry 95 09/04/19 17:46 Pain Scale Pain Intensity 0 - Physical Exam General Appearance: no apparent distress, alert Eye Exam: PERRL/EOMI, eyes nml inspection Ears, Nose, Throat Exam: normal ENT inspection, TMs normal, pharynx normal, moist mucous membranes Neck Exam: normal inspection, non-tender, supple, full range of motion Respiratory Exam: normal breath sounds, lungs clear, No respiratory distress Cardiovascular Exam: regular rate/rhythm, normal heart sounds Gastrointestinal/Abdomen Exam: soft, No tenderness Back Exam: normal inspection, No CVA tenderness, No vertebral tenderness Extremity Exam: normal inspection, normal range of motion Neurologic Exam: alert, oriented x 3, cooperative, normal mood/affect, sensation nml, No motor deficits Skin Exam: normal color, warm, dry, No rash Lymphatic Exam: No adenopathy SpO2: 97 - Course Nursing assessment & vital signs reviewed: Yes Ordered Tests: Active Orders 24 hr Category Date Time Status CBC W DIFF Stat Lab 09/04/19 17:30 Completed CMP Stat Lab 09/04/19 17:30 Completed UA W/RFX UR CULTURE Stat Lab 09/04/19 17:52 Completed Medication Summary Generic Name Dose Route Start Last Admin Trade Name Freq PRN Reason Stop Dose Admin Sodium Chloride 1,000 mls @ 999 mls/hr 09/04/19 17:59 09/04/19 18:03 Sodium Chloride 0.9% 1000 Ml IV 09/04/19 18:59 999 mls/hr .[id number] STA Administration Discontinued Medications Generic Name Dose Route Start Last Admin Trade Name Freq PRN Reason Stop Dose Admin Sodium Chloride Confirm 09/04/19 18:02 Sodium Chloride 0.9% 1000 Ml Administered 09/04/19 18:03 Dose 1,000 mls @ ud .ROUTE .STK-MED ONE Lab/Rad Data: Laboratory Result Diagrams 09/04/19 17:30 09/04/19 17:30 Laboratory Results 09/04/19 09/04/19 09/04/19 Range/Units 17:52 17:30 17:30 WBC 8.8 (4.0-10.5) K/mm3 RBC 3.76 L (4.1-5.4) M/mm3 Hgb 11.6 L (12.0-16.0) gm/dl Hct 33.8 L (35-47) % MCV 89.9 (78-100) fl MCH 30.9 (26-32) pg MCHC 34.3 (32-36) g/dl RDW 15.6 H (11.5-14.0) % Plt Count 222 (150-450) K/mm3 MPV 9.9 (7.5-11.0) fl Gran % 73.9 H (36.0-66.0) % Eos # (Auto) 0.23 (0-0.5) Absolute Lymphs (auto) 1.23 (1.0-4.6) Absolute Monos (auto) 0.83 (0.0-1.3) Lymphocytes % 13.9 L (24.0-44.0) % Monocytes % 9.4 (0.0-12.0) % Eosinophils % 2.6 (0.00-5.0) % Basophils % 0.2 (0.0-0.4) % Absolute Granulocytes 6.53 (1.4-6.9) Basophils # 0.02 (0-0.4) Sodium 137 (137-145) mmol/L Potassium 3.8 (3.5-5.1) mmol/L Chloride 111 H (98-107) mmol/L Carbon Dioxide 21 L (22-30) mmol/L Anion Gap 9.0 (5-15) MEQ/L BUN 7 (7-17) mg/dL Creatinine 0.40 L (0.52-1.04) mg/dL Estimated GFR > 60.0 ML/MIN Glucose 86 (74-106) mg/dL Calcium 8.8 (8.4-10.2) mg/dL Total Bilirubin 0.50 (0.2-1.3) mg/dL AST 16 (14-36) U/L ALT 6 (0-35) U/L Alkaline Phosphatase 48 (38-126) U/L Serum Total Protein 7.1 (6.3-8.2) g/dL Albumin 3.7 (3.5-5.0) g/dL Urine Color YELLOW (YELLOW) Urine Appearance SLIGHTLY CLOUDY (CLEAR) Urine pH 6.0 (5-6) Ur Specific [place] 1.025 (1.005-1.025) Urine Protein NEGATIVE (Negative) Urine Ketones NEGATIVE (NEGATIVE) Urine Blood NEGATIVE (0-5) Kings/ul Urine Nitrite NEGATIVE (NEGATIVE) Urine Bilirubin NEGATIVE (NEGATIVE) Urine Urobilinogen 2 (0-1) mg/dL Ur Leukocyte Esterase NEGATIVE (NEGATIVE) Urine WBC (Auto) 0-2 (0-5) /HPF Urine RBC (Auto) NONE (0-2) /HPF U Epithel Cells (Auto) RARE (FEW) /HPF Urine Bacteria (Auto) RARE (NEGATIVE) /HPF Urine Mucus (Auto) SLIGHT (NEGATIVE) /HPF Urine Culture Reflexed NO (NO) Urine Glucose NEGATIVE (NEGATIVE) mg/dL Influenza Type A Ag (NEGATIVE) Influenza Type B Ag (NEGATIVE) RSV (PCR) (Negative) Group A Strep Antibody (NEGATIVE) 09/04/19 Range/Units 17:30 WBC (4.0-10.5) K/mm3 RBC (4.1-5.4) M/mm3 Hgb (12.0-16.0) gm/dl Hct (35-47) % MCV (78-100) fl MCH (26-32) pg MCHC (32-36) g/dl RDW (11.5-14.0) % Plt Count (150-450) K/mm3 MPV (7.5-11.0) fl Gran % (36.0-66.0) % Eos # (Auto) (0-0.5) Absolute Lymphs (auto) (1.0-4.6) Absolute Monos (auto) (0.0-1.3) Lymphocytes % (24.0-44.0) % Monocytes % (0.0-12.0) % Eosinophils % (0.00-5.0) % Basophils % (0.0-0.4) % Absolute Granulocytes (1.4-6.9) Basophils # (0-0.4) Sodium (137-145) mmol/L Potassium (3.5-5.1) mmol/L Chloride (98-107) mmol/L Carbon Dioxide (22-30) mmol/L Anion Gap (5-15) MEQ/L BUN (7-17) mg/dL Creatinine (0.52-1.04) mg/dL Estimated GFR ML/MIN Glucose (74-106) mg/dL Calcium (8.4-10.2) mg/dL Total Bilirubin (0.2-1.3) mg/dL AST (14-36) U/L ALT (0-35) U/L Alkaline Phosphatase (38-126) U/L Serum Total Protein (6.3-8.2) g/dL Albumin (3.5-5.0) g/dL Urine Color (YELLOW) Urine Appearance (CLEAR) Urine pH (5-6) Ur Specific [place] (1.005-1.025) Urine Protein (Negative) Urine Ketones (NEGATIVE) Urine Blood (0-5) Kings/ul Urine Nitrite (NEGATIVE) Urine Bilirubin (NEGATIVE) Urine Urobilinogen (0-1) mg/dL Ur Leukocyte Esterase (NEGATIVE) Urine WBC (Auto) (0-5) /HPF Urine RBC (Auto) (0-2) /HPF U Epithel Cells (Auto) (FEW) /HPF Urine Bacteria (Auto) (NEGATIVE) /HPF Urine Mucus (Auto) (NEGATIVE) /HPF Urine Culture Reflexed (NO) Urine Glucose (NEGATIVE) mg/dL Influenza Type A Ag NEGATIVE (NEGATIVE) Influenza Type B Ag NEGATIVE (NEGATIVE) RSV (PCR) NEGATIVE (Negative) Group A Strep Antibody NOT DETECTED (NEGATIVE) - Progress Progress: improved Air Movement: good Progress Note: 09/04/19 18:36 With IV fluids and supportive treatment here. All labs are within normal limits as well as a flu swab, RSV and strep. Most likely patient with possibly a viral illness or just achiness and some symptoms secondary to her . Patient is nontoxic. I do not feel patient has COVID. Pt OK to go home, feels fine to go home. Blood Culture(s) Obtained: No Antibiotics given: No Counseled pt/family regarding: lab results, diagnosis, need for follow-up - Departure Departure Disposition: Home Clinical Impression: Viral illness Condition: Stable Critical Care Time: No Referrals: DYLON CARVAJAL MD [Primary Care Provider] - Additional Instructions: Drink plenty of water and continue home medications. Monitor symptoms closely. Follow-up with OB as scheduled. Return to ER if worse.
[2019-09-04 18:17] LABS: ALBUMIN 3.7 g/dL (3.5-5.0); ALKALINE PHOSPHATASE 48 U/L (38-126); BLOOD UREA NITROGEN 7 mg/dL (7-17); CHLORIDE 111 mmol/L (98-107); Calcium 8.8 mg/dL (8.4-10.2); Carbon Dioxide 21 mmol/L (22-30); Glucose 86 mg/dL (74-106); Potassium 3.8 mmol/L (3.5-5.1); SGOT/AST 16 U/L (14-36); SGPT/ALT 6 U/L (0-35); SODIUM 137 mmol/L (137-145); Total Protein 7.1 g/dL (6.3-8.2)
[2019-09-04 18:20] LABS: INFLUENZA A NEGATIVE (NEGATIVE); INFLUENZA B NEGATIVE (NEGATIVE); RESPIRATORY SYNCTIAL VIRUS NEGATIVE (Negative)
[2019-09-04 18:41] VITALS: BP 100/66
[2019-09-04 19:00] VITALS: PULSE 78
== END 2019-09-04 18:55 | disposition home or self-care (01) ==
LOC: ED 17:21
DX: B34.9 Viral infection, unspecified (principal)
CPT/HCPCS: 36415; 80053; 81001; 85025; 87631; 87651; 96360; 99284

== ENCOUNTER 2019-10-31 15:25 | Observation (INO) | payer OTHER ==
[2019-10-31] MEDS ORDERED: Lactated Ringers 1,000 ML IV SCH (17:00)
[2019-10-31 17:40] LABS: Appearance CLEAR (CLEAR); Bilirubin NEGATIVE (NEGATIVE); Blood NEGATIVE Ery/ul (0-5); Epithelial Cells RARE /HPF (FEW); Glucose NEGATIVE (NEGATIVE); Ketones NEGATIVE (NEGATIVE); Leukocyte Esterase NEGATIVE (NEGATIVE); Mucus SLIGHT /HPF (NEGATIVE); Nitrite NEGATIVE (NEGATIVE); Protein,Urine Dip NEGATIVE (Negative); RBC 0-2 /HPF (0-2); Specific Gravity 1.016 (1.005-1.025); Urobilinogen NEGATIVE mg/dL (0-1); WBC 0-2 /HPF (0-5)
[2019-10-31 19:17] VITALS: BP 122/79; PULSE 68; O2SAT 100
--- NOTE | 2019-11-01 08:52 | XRAY ---
Indication: Pelvic pressure. Evaluate cervical length. Two-dimensional transvaginal limited OB ultrasound performed to evaluate cervical length. Cervix is closed measuring 4 cm in length.
--- NOTE | 2019-11-01 08:54 | XRAY ---
Indication: Pelvic pressure. Ultrasound biophysical profile exam was performed. There is a single viable intrauterine in cephalic presentation with heart rate 129 BPM. Four-quadrant LUIZA is 16.1 cm. 2 points given for breathing, movements, tone, and qualitative amniotic fluid volume. Impression: Total biophysical profile score is 8 out of 8.
== END 2019-10-31 19:12 | disposition home or self-care (01) ==
LOC: OB 16:04
PROVIDERS: ADMIT Family Medicine; ATTEND Family Medicine
DX: Z34.82 Encounter for supervision of other normal pregnancy, second trimester (principal)
CPT/HCPCS: 59025; 76815; 76819; 81001; 82731; G0378

== ENCOUNTER 2019-12-16 10:41 | Emergency (ER) | payer OTHER ==
[2019-12-16 10:58] VITALS: O2SAT 98
--- NOTE | 2019-12-16 11:08 | ERPHSYRPT ---
- History of Present Illness Time Seen by Provider: 12/16/19 10:55 Source: patient Exam Limitations: no limitations Patient Subjective Stated Complaint: pt reports left hand pain beginning last tuesday12/10/19, pt states her work includes a lot of repetitive motions with h er hands. pt states she is 34 weeks . denies any injury or accident. Triage Nursing Assessment: pt is aox3, pupils perrl, afebrile, resps easy and non labored, cap refill < 3 seconds, radial pulses strong and equal, pt skin pink warm dry. no obvious injury or deformity noted, pt sensation, ROM intact. pt is able to open and close hand, move all digits. Physician History: This is a 29-year-old obese white female who is approximately 8 months and presents with approximately 5 to 6-day history of left hand mild cramping and numbness that is worse when she wakes up in the morning and improves during the day. Patient does a lot of repetitive work with her hands and wrist at her place of employment. She denies any acute traumatic injury. Never had this before. Has no other complaints. She has no visual changes no headaches no shortness of breath and no chest pain. Occurred: days ago (5 to 6 days ago) Method of Injury: other (Repetitive movements at her place of employment) Quality: cramping, other (Numbness) Severity of Pain-Max: mild Severity of Pain-Current: mild Extremities Pain Location: wrist: left, hand: left Modifying Factors: Improves With: movement Associated Symptoms: none Allergies/Adverse Reactions: No Known Drug Allergies Allergy (Verified 12/16/19 10:58) Home Medications: Pediatric Multivitamin No.101 [Gummy] 1 tab PO DAILY 08/26/16 [History] Ferrous Sulfate [Iron] 1 tab PO DAILY 08/13/19 [History] Hx Tetanus, Diphtheria Vaccination/Date Given: Yes Hx Influenza Vaccination/Date Given: No Hx Pneumococcal Vaccination/Date Given: No Immunizations Up to Date: Yes Travel Risk - International Travel Have you traveled outside of the country in past 3 weeks: No - Coronavirus Screening Are you exhibiting any of the following symptoms?: No Close contact with a COVID-19 positive Pt in past 14-21 Days: No - Review of Systems Constitutional: No Symptoms Eyes: No Symptoms Ears, Nose, & Throat: No Symptoms Respiratory: No Symptoms Cardiac: No Symptoms Abdominal/Gastrointestinal: No Symptoms Genitourinary Symptoms: No Symptoms Musculoskeletal: No Injury (Left hand stiffness left wrist stiffness with mild numbness of left hand digits) Skin: No Symptoms Neurological: No Symptoms (See above) Psychological: No Symptoms Endocrine: No Symptoms Hematologic/Lymphatic: No Symptoms Immunological/Allergic: No Symptoms All Other Systems: Reviewed and Negative - Past Medical History Pertinent Past Medical History: No Neurological History: No Pertinent History ENT History: No Pertinent History Cardiac History: No Pertinent History Respiratory History: No Pertinent History Endocrine Medical History: No Pertinent History Musculoskeletal History: No Pertinent History GI Medical History: No Pertinent History History: No Pertinent History Psycho-Social History: No Pertinent History Female Reproductive Disorders: No Pertinent History - Past Surgical History Past Surgical History: Yes Neuro Surgical History: No Pertinent History Cardiac: No Pertinent History Respiratory: No Pertinent History Gastrointestinal: No Pertinent History Genitourinary: No Pertinent History Musculoskeletal: No Pertinent History Female Surgical History: No Pertinent History - Social History Smoking Status: Never smoker Exposure to second hand smoke: No Drug Use: none Patient Lives Alone: No - Female History Hx Now: Yes Expected Date of Delivery: 01/24/20 - Nursing Vital Signs Nursing Vital Signs: Initial Vital Signs Temperature 97.9 F 12/16/19 10:46 Pulse Rate 94 H 12/16/19 10:46 Respiratory Rate 20 12/16/19 10:46 Blood Pressure 132/79 12/16/19 10:46 O2 Sat by Pulse Oximetry 98 12/16/19 10:46 Pain Scale Pain Intensity 10 - Physical Exam General Appearance: no apparent distress, alert, anxiety Eyes, Ears, Nose, Throat Exam: normal ENT inspection, moist mucous membranes Neck Exam: normal inspection, non-tender, supple, full range of motion Cardiovascular/Respiratory Exam: chest non-tender Abdominal Exam: non-tender Back Exam: normal inspection, normal range of motion, No CVA tenderness, No vertebral tenderness Shoulder Exam: normal inspection, non-tender, no evidence of injury, normal ROM Elbow/Forearm Exam: normal inspection, non-tender, no evidence of injury, normal ROM Wrist Exam: normal inspection, no evidence of injury, normal ROM Hand Exam: normal inspection, no evidence of injury, normal ROM, stiffness Neuro/Tendon Exam: normal sensation, normal motor functions, normal tendon functions Mental Status Exam: alert, oriented x 3, cooperative Skin Exam: normal color, warm, dry SpO2 Interpretation: normal SpO2: 98 O2 Delivery: Room Air - Course Nursing assessment & vital signs reviewed: Yes Ordered Tests: Active Orders 24 hr Category Date Time Status BMP Stat Lab 12/16/19 11:20 Completed MAGNESIUM Stat Lab 12/16/19 11:20 Completed Medication Summary Generic Name Dose Route Start Last Admin Trade Name Maxwell PRN Reason Stop Dose Admin Magnesium Oxide 400 mg 12/17/19 11:47 Mag-Ox 400 PO 12/17/19 11:48 STAT ONE Potassium Chloride 10 meq 12/16/19 11:47 Klor Con 10 Meq PO 12/16/19 11:48 STAT ONE Lab/Rad Data: Laboratory Result Diagrams 12/16/19 11:20 Laboratory Results 12/16/19 Range/Units 11:20 Sodium 135 L (137-145) mmol/L Potassium 3.3 L (3.5-5.1) mmol/L Chloride 109 H (98-107) mmol/L Carbon Dioxide 21 L (22-30) mmol/L Anion Gap 8.0 (5-15) MEQ/L BUN 7 (7-17) mg/dL Creatinine 0.46 L (0.52-1.04) mg/dL Estimated GFR > 60.0 ML/MIN Glucose 128 H (74-106) mg/dL Calcium 8.4 (8.4-10.2) mg/dL Magnesium 1.5 L (1.6-2.3) mg/dL - Progress Progress: unchanged Counseled pt/family regarding: lab results, diagnosis, need for follow-up - Departure Departure Disposition: Home Clinical Impression: Hand cramp, Hypokalemia, Hypomagnesemia Condition: Stable Critical Care Time: No Referrals: DYLON CARVAJAL MD [Primary Care Provider] - Additional Instructions: Drink plenty of fluids. 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
[2019-12-16 11:39] LABS: BLOOD UREA NITROGEN 7 mg/dL (7-17); CHLORIDE 109 mmol/L (98-107); Calcium 8.4 mg/dL (8.4-10.2); Carbon Dioxide 21 mmol/L (22-30); Creatinine 1 0.46 mg/dL (0.52-1.04); Glucose 128 mg/dL (74-106); MAGNESIUM 1.5 mg/dL (1.6-2.3); Potassium 3.3 mmol/L (3.5-5.1); SODIUM 135 mmol/L (137-145)
[2019-12-16] MEDS ORDERED: Klor Con 10 MEQ PO ONE ×2 (11:47→12:04)
[2019-12-16 11:59] VITALS: BP 119/17; PULSE 72
[2019-12-16] MEDS ORDERED: MAG-OX 400 ONE (12:04)
[2019-12-17] MEDS ORDERED: MAG-OX 400 PO ONE (11:47)
== END 2019-12-16 12:10 | disposition home or self-care (01) ==
LOC: ED 10:41
DX: R25.2 Cramp and spasm (principal); E87.6 Hypokalemia; E83.42 Hypomagnesemia
CPT/HCPCS: 36415; 80048; 83735; 99284; L3908; A9270-GY

== ENCOUNTER 2020-01-18 15:27 | Inpatient (IN) | payer OTHER ==
[2020-01-18] MEDS ORDERED: Zofran 4 MG/2 ML VIAL IV PRN (22:58)
[2020-01-18] MEDS ORDERED: XYLOCAINE 1% HCL 20 ML MDV IJ PRN (22:58)
[2020-01-18] MEDS ORDERED: PITOCIN 30 UNITS/ LR 500 ML 30 UNITS/500 ML IV.SOLN. IV SCH (23:00)
[2020-01-18] MEDS ORDERED: Lactated Ringers 1,000 ML IV SCH (23:00)
[2020-01-18 23:24] LABS: Amphetamine,Urine NEGATIVE (NEGATIVE); Barbiturate,Urine NEGATIVE (NEGATIVE); Benzodiazepine,Urine NEGATIVE (NEGATIVE); Cocaine,Urine NEGATIVE (NEGATIVE); Methadone,Urine NEGATIVE (NEGATIVE); Opiate,Urine NEGATIVE (NEGATIVE); PCP,Urine NEGATIVE (NEGATIVE); THC,Urine NEGATIVE (NEGATIVE)
[2020-01-18 23:50] LABS: Hematocrit 34.8 % (35-47); Hemoglobin 11.1 gm/dl (12.0-16.0); Mean Cell Volume 90.6 fl (78-100); Mean Corpuscular Hemoglobin 28.9 pg (26-32); Mean Corpuscular Hgb Concent. 31.9 g/dl (32-36); Mean Platelet Volume 10.2 fl (7.5-11.0); Platelet Count 241 K/mm3 (150-450); Red Blood Count 3.84 M/mm3 (4.1-5.4); Red Cell Distribution Width 15.8 % (11.5-14.0); White Blood Count 11.5 K/mm3 (4.0-10.5)
[2020-01-19 02:30] LABS: Eosinophil 1 % (0.00-3.0); Lymphocytes 21 % (24-44); Monocyte 9 % (0.0-12.0); Neutrophils 69 % (36.0-66.0); Platelet Estimate NORMAL (NORMAL); Total Cells Counted 100
[2020-01-19] MEDS ORDERED: Methergine IM SCH (16:53)
[2020-01-19] MEDS ORDERED: Adacel Vial IM ONE (17:33)
[2020-01-19] MEDS ORDERED: TUCKS TP PRN (17:33)
[2020-01-19] MEDS ORDERED: Mylicon 80MG PO PRN (17:33)
[2020-01-19] MEDS ORDERED: NORCO 5/325 MG PO PRN (17:33)
[2020-01-19] MEDS: Dermoplast Spray TP PRN (20:00)
[2020-01-19] MEDS: MOTRIN 400 MG PO PRN (20:25)
[2020-01-19] MEDS: Colace 100 MG PO SCH (22:09)
[2020-01-19] MEDS: TYLENOL EXTRA STRENGTH 500 MG PO PRN (23:06)
[2020-01-20 02:34] VITALS: O2SAT 99
[2020-01-20] MEDS: MOTRIN 400 MG PO PRN ×2 (03:07→17:49)
[2020-01-20 04:26] LABS: BASOPHIL % 0.1 % (0.0-0.4); Basophil (Absolute #) 0.02 (0-0.4); Eosinophil % 0.1 % (0.00-5.0); Eosinophil (Absolute #) 0.02 (0-0.5); Hematocrit 31.6 % (35-47); Hemoglobin 10.3 gm/dl (12.0-16.0); Lymphocytes % 14.7 % (24.0-44.0); Mean Cell Volume 88.3 fl (78-100); Mean Corpuscular Hemoglobin 28.8 pg (26-32); Mean Corpuscular Hgb Concent. 32.6 g/dl (32-36); Mean Platelet Volume 9.9 fl (7.5-11.0); Monocyte (Absolute #) 1.34 (0.0-1.3); Monocytes % 9.9 % (0.0-12.0); Neutrophil % 75.2 % (36.0-66.0); Platelet Count 237 K/mm3 (150-450); Red Blood Count 3.58 M/mm3 (4.1-5.4); Red Cell Distribution Width 15.5 % (11.5-14.0); White Blood Count 13.6 K/mm3 (4.0-10.5)
[2020-01-20] MEDS: FERREX 150 PO SCH (10:58)
[2020-01-20] MEDS: Colace 100 MG PO SCH ×2 (10:58→21:19)
[2020-01-20] MEDS: TYLENOL EXTRA STRENGTH 500 MG PO PRN (21:19)
[2020-01-21] MEDS: MOTRIN 400 MG PO PRN (03:52)
[2020-01-21] MEDS ORDERED: Cyclobenzaprine 10 MG PO PRN (08:24)
[2020-01-21] MEDS: FERREX 150 PO SCH (09:29)
[2020-01-21] MEDS: Colace 100 MG PO SCH (09:29)
[2020-01-21] MEDS: Dermoplast Spray TP PRN (12:58)
[2020-01-21 17:14] VITALS: PULSE 64
[2020-01-21 17:15] VITALS: BP 136/79
== END 2020-01-21 16:45 | disposition home or self-care (01) | DRG 807 ==
LOC: OB 15:27 → OBSVTOIN 01-19 09:05
PROVIDERS: ADMIT Family Medicine; ATTEND Family Medicine
PROC: 10E0XZZ Delivery of Products of Conception, External Approach (ICD-10-PCS; principal; 2020-01-20)
PROC: 0HQ9XZZ Repair Perineum Skin, External Approach (ICD-10-PCS; 2020-01-20)
DX: O66.0 Obstructed labor due to shoulder dystocia (principal); Z37.0 Single live birth; O69.1XX0 Labor and delivery complicated by cord around neck, with compression, not applicable or unspecified; O70.0 First degree perineal laceration during delivery; Z3A.39 39 weeks gestation of pregnancy
CPT/HCPCS: 36415; 80307; 85025; 87340; G0378; J2590; A9270-GY

== ENCOUNTER 2020-04-15 06:13 | Day surgery (SDC) | payer OTHER ==
[2020-04-15] MEDS ORDERED: Sensorcaine 0.25% 10 ML ONE (06:29)
[2020-04-15] MEDS ORDERED: Lactated Ringers 1,000 ML IV SCH (06:30)
[2020-04-15] MEDS ORDERED: CEFAZOLIN 2 GM-D5W BAG** 2 GM/50 ML ML IV SCH (06:30)
[2020-04-15] MEDS ORDERED: SUBLIMAZE 100 MCG/2 ML ONE ×2 (08:41→09:47)
[2020-04-15] MEDS ORDERED: DIPRIVAN 200 MG/20 ML IV ONE (08:41)
[2020-04-15] MEDS ORDERED: Zemuron 100 MG/10 ML ONE (08:41)
[2020-04-15] MEDS ORDERED: Versed 2 MG/2 ML Injection ONE (08:41)
[2020-04-15] MEDS ORDERED: Xylocaine-Mpf 2% 5 Ml Vial ONE (08:51)
[2020-04-15] MEDS ORDERED: Decadron 4 MG INJ ONE (09:05)
[2020-04-15] MEDS ORDERED: Zofran 4 MG/2 ML VIAL ONE (09:06)
[2020-04-15] MEDS ORDERED: ROBINUL ONE (09:20)
[2020-04-15] MEDS ORDERED: BRIDION 200MG/2ML IV ONE (09:22)
[2020-04-15] MEDS ORDERED: TORAdol 30 mg Injection ONE (09:47)
[2020-04-15 10:44] LABS: Appearance CLEAR (CLEAR); Bilirubin NEGATIVE (NEGATIVE); Blood NEGATIVE Ery/ul (0-5); Glucose NEGATIVE (NEGATIVE); Ketones NEGATIVE (NEGATIVE); Leukocyte Esterase NEGATIVE (NEGATIVE); Mucus SLIGHT /HPF (NEGATIVE); Nitrite NEGATIVE (NEGATIVE); Protein,Urine Dip NEGATIVE (Negative); Specific Gravity 1.021 (1.005-1.025); Urobilinogen NEGATIVE mg/dL (0-1)
[2020-04-15 10:47] LABS: Bacteria NONE SEEN /HPF (NEGATIVE)
[2020-04-15 11:45] VITALS: O2SAT 97
[2020-04-15 11:48] VITALS: BP 140/98; PULSE 53
--- NOTE | 2020-04-16 07:53 | OP ---
SURGERY DATE/TIME: 04/15/2020 0848 PREOPERATIVE DIAGNOSIS: Multiparity desiring tubal sterilization. POSTOPERATIVE DIAGNOSIS: Multiparity desiring tubal sterilization. PROCEDURE: Laparoscopic tubal sterilization via Falope ring application. SURGEON: Ganesh Collier D.O. IMMUNOHEMATOLOGIST: Lily Nichols, x ray tech. ANESTHESIA: General. ESTIMATED BLOOD LOSS: Minimal. COMPLICATIONS: None. INDICATIONS: The risks, benefits, indications and alternatives of the procedure were reviewed with the patient prior to the procedure. The patient understood the risk of infection, bleeding, bowel injury, bladder injury, ureteral injury, incisional hernia, pelvic infection, thromboembolic disorder, possible and ectopic that may be associated with this procedure however desires to have this procedure as a possible means to alleviate her current medical condition. All the forms of control were discussed with the patient prior to the procedure and declined any other form of control other than sterilization. DESCRIPTION OF PROCEDURE AND FINDINGS: From this point the patient is taken to the operating room, given general sedation, placed in a dorsal lithotomy position, prepped and draped in the usual sterile fashion. A weighted speculum is then placed in the patient's vagina and the anterior lip of the cervix was grasped with a single tooth tenaculum. At this point a uterine manipulator was then placed into the endocervical canal as a means to manipulate the uterus. Attention was then turned to the patient's abdominal region where a 5 mm skin incision is made approximately 1 cm above the umbilicus where a 5 mm trocar and sleeve were advanced under direct visualization where pneumoperitoneum was obtained with 4 liters of CO2 gas. From this point visualization revealed her to have a normal pelvic anatomy with no gross abnormalities located in the pelvic region. An additional incision was made approximately 3 cm above the symphysis pubis where an 8 mm incision was made and 8 mm trocar and sleeve were advanced under direct visualization at this point. From this point the Falope was introduced through the trocar site and the uterus is then lifted and then right fallopian tube identified and on the isthmic region the tube was then identified and the Falope ring was then applied to the isthmic region where good amount of tube was obtained after displacing the Falope ring and was done so without complication and no bleeding was noted. The same procedure was performed on the left side where the Falope ring applicator was reloaded and the Falope ring was then placed on the left isthmic region where it was displaced on the tube and without complication. Hemostasis obtained. From this point all instruments and trocars were removed from the patient's abdomen. The gas was removed from the abdominal region. Again the instruments were removed. The incisions were closed with 4-0 Monocryl suture and hemostasis obtained with Dermabond located on the surface of the skin. The patient was then taken out of anesthesia and was then taken to the recovery room in stable condition. All instruments and laps were accounted for x2.
== END 2020-04-15 12:24 | disposition home or self-care (01) ==
LOC: SDC 06:13
PROVIDERS: ATTEND Obstetrics & Gynecology
DX: Z30.2 Encounter for sterilization (principal)
CPT/HCPCS: 81001; 84703; 87086; 94250; J0690; J1100; J1885; J2250; J2405; J2704; J3010

== ENCOUNTER 2021-10-15 09:30 | Day surgery (SDC) | payer OTHER ==
--- NOTE | 2021-10-09 11:43 | HP ---
DATE OF SURGERY: 10/15/2021 HISTORY OF PRESENT ILLNESS: The patient is a 31-year-old obese female presented with complaints of right upper quadrant pain radiating to the back. She stated that there was some lifting that may this worse. She also has some nausea, vomiting, diarrhea and this is worse with fatty food. If she has attack she has to stop what she is doing as it so painful. She had ultrasound showing she had cholelithiasis. PAST MEDICAL HISTORY: None. PAST SURGICAL HISTORY: Tonsillectomy. Tubal. ALLERGIES: NKDA. MEDICATIONS: Adipex. FAMILY HISTORY: Cancer, diabetes. SOCIAL HISTORY: None. REVIEW OF SYSTEMS: CONSTITUTIONAL: Denies fever or chills. CHEST: Denies shortness of breath. CVS: Denies chest pain. ABDOMEN: Reports right upper quadrant pain, nausea, vomiting and diarrhea. Denies constipation or rectal bleeding. PHYSICAL EXAMINATION: GENERAL: No acute distress. CHEST: Nonlabored. No shortness of breath. CVS: Regular rate and rhythm. ABDOMEN: Soft, obese. IMPRESSION: Symptomatic cholelithiasis. PLAN: Laparoscopic cholecystectomy with Dr. Junior Rosario. As dictated by Patricia Taylor NP.
[~2021-10-15 09:30] MED LIST: Lactated Ringers 1,000 ML IV ONE; Sensorcaine 0.25% 10 ML ONE
[2021-10-15] MEDS ORDERED: DIPRIVAN 200 MG/20 ML IV ONE (09:31)
[2021-10-15] MEDS ORDERED: Lactated Ringers 1,000 ML IV ONE (09:58)
[2021-10-15] MEDS ORDERED: MEFOXIN 2 GM PREMIX** 2 GM/50 ML ML IV ONE (09:58)
[2021-10-15] MEDS ORDERED: Lactated Ringers 1,000 ML IV SCH (10:00)
[2021-10-15 10:09] VITALS: O2SAT 100
[2021-10-15] MEDS ORDERED: Transderm Scop 1.5MG Patch TOP ONE (10:58)
[2021-10-15] MEDS ORDERED: Versed 2 MG/2 ML Injection IV ONE (10:58)
[2021-10-15] MEDS ORDERED: Versed 2 MG/2 ML Injection ONE ×2 (10:59→11:11)
[2021-10-15] MEDS ORDERED: Transderm Scop 1.5MG Patch ONE (10:59)
[2021-10-15] MEDS ORDERED: MEFOXIN 2 GM PREMIX** 2 GM/50 ML ML IV SCH (11:00)
[2021-10-15] MEDS ORDERED: Zemuron 100 MG/10 ML ONE (11:11)
[2021-10-15] MEDS ORDERED: SUBLIMAZE 250 MCG/5 ML ONE (11:11)
[2021-10-15] MEDS ORDERED: BRIDION 200MG/2ML IV ONE (12:11)
[2021-10-15] MEDS ORDERED: Zofran 4 MG/2 ML VIAL ONE ×2 (12:12→12:46)
[2021-10-15] MEDS ORDERED: SUBLIMAZE 100 MCG/2 ML ONE ×2 (12:22→12:46)
[2021-10-15] MEDS ORDERED: TORAdol 30 mg Injection ONE (12:53)
--- NOTE | 2021-10-15 13:29 | OP ---
SURGERY DATE/TIME: 10/15/2021 1133 PREOPERATIVE DIAGNOSIS: Symptomatic cholelithiasis. POSTOPERATIVE DIAGNOSIS: Symptomatic cholelithiasis. PROCEDURE: Laparoscopic cholecystectomy. SURGEON: Dr. Junior Rosario. ANESTHESIA: General endotracheal tube. ESTIMATED BLOOD LOSS: None. COMPLICATIONS: None. CONDITION: Stable. INDICATIONS: A patient with symptomatic gallstones. DESCRIPTION OF PROCEDURE AND FINDINGS: Taken to surgery. General anesthetic, routine prep and drape. Veress needle inserted. Opening pressure of 1, insufflating pressure 14. Four - 5's. Good visualization. Cystic duct defined. Cystic artery defined. Both structures triply clipped and transected. Clips noted across and well approximated. Gallbladder rolled out of gallbladder fossa. The gallbladder delivered through the epigastric port. There were several stones present in the gallbladder. Field was dry and clean. No hole closure device was required. CO2 exsufflated. Skin closed with 4-0 Vicryl and Steri-Strips.
[2021-10-15] MEDS ORDERED: NORCO 5/325 MG PO PRN (14:03)
[2021-10-15 14:44] VITALS: BP 147/90; PULSE 55
== END 2021-10-15 14:45 | disposition home or self-care (01) ==
LOC: SDC 09:30
PROVIDERS: ATTEND Surgery
DX: K80.20 Calculus of gallbladder without cholecystitis without obstruction (principal)
CPT/HCPCS: 84703; J0694; J1885; J2250; J2405; J2704; J3010; A9270-GY